=== PATIENT | female | born 1975 | race African-American/Black ===

== ENCOUNTER 2020-09-12 11:10 | Inpatient (IN) | payer SELFPAY ==
[2020-09-12 11:34] VITALS: BMI 32.5
[2020-09-12] MEDS ORDERED: SODIUM CHLORIDE 0.9% 1000 ML INFUS.BAG IV ONE ×2 (12:34→15:34)
[2020-09-12] MEDS ORDERED: ONDANSETRON 4 MG/2 ML VIAL ONE ×2 (12:52→16:15)
[2020-09-12] MEDS ORDERED: ACETAMINOPHEN 1000 MG/100 ML VIAL (NON FORMULARY) IVPB ONE (13:12)
[2020-09-12 13:30] LABS: HEMATOCRIT 35.4 % (32.4-45.2); HEMOGLOBIN 11.3 GM/dL (10.7-15.3); LYMPH % 13.8 % (8-40); MCHC 31.8 g/dl (32.0-36.0); MEAN CELL VOLUME 75.4 fl (80-96); MEAN PLT VOLUME 8.7 fl (7.5-11.1); MONO % 13.6 % (3.8-10.2); NEUT % 71.6 % (42.8-82.8); PLATELET COUNT 531 K/MM3 (134-434); RBC 4.69 M/mm3 (3.60-5.2); RDW 17.8 % (11.6-15.6); WHITE BLOOD COUNT 7.8 K/mm3 (4.0-10.0)
[2020-09-12] MEDS ORDERED: ACETAMINOPHEN INJECTION 100 ML IVPB ONE (13:31)
[2020-09-12 13:39] LABS: INR 1.08 (0.83-1.09); PROTHROMBIN TIME (PATIENT) 13.3 SEC (9.7-13.0)
[2020-09-12 13:52] LABS: POTASSIUM 3.2 mmol/L (3.5-5.1)
[2020-09-12 13:54] LABS: CALCIUM 10.3 mg/dL (8.5-10.1)
[2020-09-12 13:55] LABS: BLOOD UREA NITROGEN 24.7 mg/dL (7-18)
[2020-09-12 13:58] LABS: CREATININE 1.3 mg/dL (0.55-1.3)
[2020-09-12 13:59] LABS: BILIRUBIN,TOTAL 1.6 mg/dL (0.2-1)
[2020-09-12 14:00] LABS: TOT PROT 9.4 g/dl (6.4-8.2)
[2020-09-12] MEDS ORDERED: ONDANSETRON 4 MG/2 ML VIAL IVPUSH ONE ×2 (15:35→16:43)
[2020-09-12] MEDS ORDERED: POTASSIUM CHLORIDE TABS 20 MEQ TABLET.ER (FP) PO ONE (15:35)
[2020-09-12 15:36] LABS: EPI CELLS >36 /uL (0-25.1); HYALINE CASTS 4 /uL (0-3.1); URINE APPEARANCE CLOUDY; URINE BACTERIA 1403 /uL (0-1359); URINE BILIRUBIN NEGATIVE (NEGATIVE); URINE COLOR ORANGE; URINE GLUCOSE (UA) NEGATIVE (NEGATIVE); URINE KETONE TRACE (NEGATIVE); URINE LEUK ESTERASE TRACE (NEGATIVE); URINE NITRITE NEGATIVE (NEGATIVE); URINE PROTEIN 2+ (NEGATIVE); URINE RBC 4856 /uL (0-23.9); URINE UROBILINOGEN 0.2 mg/dL (0.2-1.0); URINE WBC 84 /uL (0-25.8)
[2020-09-12] MEDS ORDERED: POTASSIUM CHLORIDE TABS 10 MEQ TABLET.ER (FP) ONE (16:14)
[2020-09-12] MEDS ORDERED: POTASSIUM CHLORIDE 20 MEQ PREMIX IVPB 100 ML IVPB ONE (16:43)
[2020-09-12] MEDS ORDERED: KETOROLAC TROMETHAMINE 15 MG/ML VIAL IVPUSH ONE (17:28)
[2020-09-12] MEDS ORDERED: KCL 10 MEQ IVPB 20 MEQ/200 ML INFUS.BAG IVPB ONE (17:31)
[2020-09-12] MEDS ORDERED: KETOROLAC TROMETHAMINE 15 MG/ML VIAL ONE (17:32)
[2020-09-12] MEDS ORDERED: morphine CARPU-JECT 4 MG/1 ML DISP.SYRIN IVPUSH ONE (18:46)
[2020-09-12] MEDS ORDERED: morphine SULFATE 4 MG/ML VIAL ONE (18:51)
[2020-09-12] MEDS ORDERED: SODIUM CHLORIDE 1,000 ML IV SCH (19:00)
[2020-09-12] MEDS ORDERED: ACETAMINOPHEN 1000 MG/100 ML VIAL (NON FORMULARY) IVPB PRN (20:12)
[2020-09-13 07:36] LABS: HEMATOCRIT 28.4 % (32.4-45.2); HEMOGLOBIN 9.1 GM/dL (10.7-15.3); MCHC 31.9 g/dl (32.0-36.0); MEAN CELL VOLUME 75.4 fl (80-96); MEAN PLT VOLUME 8.4 fl (7.5-11.1); PLATELET COUNT 400 K/MM3 (134-434); RBC 3.77 M/mm3 (3.60-5.2); RDW 17.8 % (11.6-15.6); WHITE BLOOD COUNT 6.4 K/mm3 (4.0-10.0)
[2020-09-13 07:50] LABS: POTASSIUM 3.5 mmol/L (3.5-5.1)
[2020-09-13 07:55] LABS: ALBUMIN 3.7 g/dl (3.4-5.0); CALCIUM 8.6 mg/dL (8.5-10.1)
[2020-09-13 07:56] LABS: BLOOD UREA NITROGEN 20.3 mg/dL (7-18); MAGNESIUM 2.5 mg/dL (1.8-2.4)
[2020-09-13 07:58] LABS: PHOSPHOROUS 4.1 mg/dL (2.5-4.9)
[2020-09-13 07:59] LABS: BILIRUBIN,TOTAL 0.8 mg/dL (0.2-1)
[2020-09-13 08:25] LABS: TOT PROT 6.7 g/dl (6.4-8.2)
[2020-09-13] MEDS ORDERED: DEXTROSE 5%-0.45% SALINE 1,000 ML IV SCH (08:30)
[2020-09-13] MEDS ORDERED: POTASSIUM CHLORIDE TABS 20 MEQ TABLET.ER (FP) PO ONE (08:30)
[2020-09-13] MEDS ORDERED: amLODIPine BESYLATE 10 MG TABLET (FP) PO SCH (10:00)
[2020-09-13 17:31] VITALS: BP 149/92; PULSE 61; TEMP 98.3
== END 2020-09-13 20:42 | disposition home or self-care (01) | DRG 249 ==
LOC: JER 11:10 → JERBED 18:43 → J4W 09-13 00:29
PROVIDERS: ADMIT Internal Medicine; ATTEND Nurse Practitioner Acute Care
DX: A08.4 Viral intestinal infection, unspecified (principal); I10 Essential (primary) hypertension; E86.0 Dehydration; E87.2 Acidosis; R11.10 Vomiting, unspecified; E87.6 Hypokalemia; D25.9 Leiomyoma of uterus, unspecified; R10.9 Unspecified abdominal pain
CPT/HCPCS: 36415; 71045-TC-FY; 74177-TC; 76705-TC; 76830-TC; 76856-TC; 76937; 80053; 81003; 83605; 83690; 83735; 84100; 85025; 85027; 85610; 86769; 87804; 93005; 93010; 99285-25; C9803; J0131; Q9967; U0003

== ENCOUNTER 2022-09-09 09:34 | Inpatient (IN) | payer BC, OTHER ==
[2022-09-09] MEDS ORDERED: ONDANSETRON *ODT* 4 MG TABLET SL ONE (09:56)
[2022-09-09] MEDS ORDERED: Methylnaltrexone Bromide 12 MG/0.6 ML KIT SQ ONE (09:59)
[2022-09-09] MEDS ORDERED: ONDANSETRON 4 MG/2 ML VIAL IVPUSH ONE (10:42)
[2022-09-09] MEDS ORDERED: ONDANSETRON 4 MG/2 ML VIAL ONE ×2 (10:45→20:54)
[2022-09-09 11:05] LABS: HEMATOCRIT 31.8 % (32.4-45.2); HEMOGLOBIN 10.3 GM/dL (10.7-15.3); MCH 26.8 pg (25.7-33.7); MCHC 32.3 g/dl (32.0-36.0); MEAN PLT VOLUME 8.5 fl (7.5-11.1); PLATELET COUNT 474 10^3/uL (134-434); RBC 3.84 M/mm3 (3.60-5.2); RDW 19.4 % (11.6-15.6); WHITE BLOOD COUNT 14.1 K/mm3 (4.0-10.0)
[2022-09-09 11:13] LABS: PROTHROMBIN TIME (PATIENT) 11.6 SEC (9.7-13.0)
[2022-09-09 11:15] LABS: ACTIVATED PTT 28.5 SECONDS (25.2-36.5)
[2022-09-09 11:29] LABS: CHLORIDE 103 mmol/L (98-107); SODIUM 137 mmol/L (136-145)
[2022-09-09 11:31] LABS: ANION GAP 11 MMOL/L (8-16); BLOOD UREA NITROGEN 13.5 mg/dL (7-18); CALCIUM 9.9 mg/dL (8.5-10.1); CO2 23 mmol/L (21-32); MAGNESIUM 2.1 mg/dL (1.8-2.4)
[2022-09-09 11:32] LABS: GLUCOSE,RANDOM 121 mg/dL (74-106)
[2022-09-09 11:33] LABS: LIPASE 119 U/L (73-393)
[2022-09-09 11:35] LABS: SGOT/AST 30 U/L (15-37); SGPT/ALT 35 U/L (13-61)
[2022-09-09 11:36] LABS: BILIRUBIN,TOTAL 0.8 mg/dL (0.2-1); TOT PROT 7.9 g/dl (6.4-8.2)
[2022-09-09 11:37] LABS: ALK PHOS 59 U/L (45-117)
[2022-09-09] MEDS ORDERED: METOCLOPRAMIDE HCL INJECTION 10 MG/2 ML VIAL IVPB ONE ×2 (11:38→17:56)
[2022-09-09] MEDS ORDERED: METOCLOPRAMIDE HCL INJECTION 10 MG/2 ML VIAL ONE ×2 (11:41→18:15)
[2022-09-09 12:05] LABS: URINE APPEARANCE CLEAR; URINE BILIRUBIN NEGATIVE (NEGATIVE); URINE COLOR YELLOW; URINE GLUCOSE (UA) NEGATIVE (NEGATIVE); URINE KETONE 4+ (NEGATIVE)
[2022-09-09] MEDS ORDERED: LORazepam 2 MG/ML SDV VIAL IVPUSH ONE (12:05)
[2022-09-09 12:06] LABS: URINE LEUK ESTERASE TRACE (NEGATIVE); URINE NITRITE NEGATIVE (NEGATIVE); URINE PROTEIN 2+ (NEGATIVE)
[2022-09-09 13:03] LABS: ANISOCYTOSIS 0; MACROCYTOSIS 0
[2022-09-09] MEDS ORDERED: METOCLOPRAMIDE HCL INJECTION 10 MG/2 ML VIAL IVPUSH PRN (18:56)
[2022-09-09] MEDS ORDERED: METOCLOPRAMIDE HCL INJECTION 10 MG/2 ML VIAL IVPUSH ONE (18:57)
[2022-09-09] MEDS: LACTATED RINGERS SOLUTION 1,000 ML/1,000 ML INFUS.BAG IV SCH (19:41)
[2022-09-09] MEDS: ONDANSETRON 4 MG/2 ML VIAL IVPUSH PRN (22:37)
[2022-09-09] MEDS: KETOROLAC TROMETHAMINE 15 MG/ML VIAL IVPUSH PRN (23:54)
[2022-09-10] MEDS: ONDANSETRON 4 MG/2 ML VIAL IVPUSH PRN (05:48)
[2022-09-10] MEDS: KETOROLAC TROMETHAMINE 15 MG/ML VIAL IVPUSH PRN ×2 (05:48→23:34)
[2022-09-10 09:35] LABS: BASO % 0.3 % (0-2.0); EOS % 0.1 % (0-4.5); HEMATOCRIT 31.5 % (32.4-45.2); HEMOGLOBIN 10.3 GM/dL (10.7-15.3); LYMPH % 4.6 % (8-40); MCH 27.1 pg (25.7-33.7); MCHC 32.8 g/dl (32.0-36.0); MEAN CELL VOLUME 82.6 fl (80-96); MEAN PLT VOLUME 8.7 fl (7.5-11.1); PLATELET COUNT 507 10^3/uL (134-434); RBC 3.81 M/mm3 (3.60-5.2); RDW 19.1 % (11.6-15.6); WHITE BLOOD COUNT 13.2 K/mm3 (4.0-10.0)
[2022-09-10] MEDS: POLYETHYLENE GLYCOL (HEALTHYLAX) 3350 17 GM PACKET PO SCH ×3 (09:48→22:13)
[2022-09-10 09:58] LABS: BLOOD UREA NITROGEN 14.3 mg/dL (7-18); CALCIUM 9.9 mg/dL (8.5-10.1)
[2022-09-10 10:02] LABS: CREATININE 0.8 mg/dL (0.55-1.3)
[2022-09-10 15:45] VITALS: BMI 33.6
[2022-09-10] MEDS ORDERED: POTASSIUM CHLORIDE TABS 20 MEQ TABLET.ER (FP) PO ONE (16:15)
[2022-09-10] MEDS: POTASSIUM CHLORIDE TABS 20 MEQ TABLET.ER (FP) PO ONE ×2 (17:13→17:16)
[2022-09-10] MEDS ORDERED: BISACODYL 10 MG SUPP.RECT PR ONE (17:35)
[2022-09-10] MEDS: METOCLOPRAMIDE HCL INJECTION 10 MG/2 ML VIAL IVPUSH SCH ×2 (17:53→23:35)
[2022-09-10] MEDS: LACTATED RINGERS SOLUTION 1,000 ML/1,000 ML INFUS.BAG IV SCH (22:13)
[2022-09-11] MEDS: LACTATED RINGERS SOLUTION 1,000 ML/1,000 ML INFUS.BAG IV SCH ×2 (01:19→11:30)
[2022-09-11] MEDS: KETOROLAC TROMETHAMINE 15 MG/ML VIAL IVPUSH PRN (04:34)
[2022-09-11] MEDS: ONDANSETRON 4 MG/2 ML VIAL IVPUSH PRN ×2 (04:35→22:32)
[2022-09-11] MEDS: METOCLOPRAMIDE HCL INJECTION 10 MG/2 ML VIAL IVPUSH SCH ×4 (05:41→23:28)
[2022-09-11] MEDS: POLYETHYLENE GLYCOL (HEALTHYLAX) 3350 17 GM PACKET PO SCH (06:42)
[2022-09-11] MEDS ORDERED: BISACODYL 10 MG SUPP.RECT PR PRN (07:37)
[2022-09-11] MEDS ORDERED: MAGNESIUM CITRATE 300 ML BOTTLE PO ONE (08:37)
[2022-09-11 09:27] LABS: BASO % 0.2 % (0-2.0); HEMATOCRIT 30.4 % (32.4-45.2); HEMOGLOBIN 10.1 GM/dL (10.7-15.3); MCH 27.4 pg (25.7-33.7); MCHC 33.2 g/dl (32.0-36.0); MEAN CELL VOLUME 82.4 fl (80-96); MEAN PLT VOLUME 8.6 fl (7.5-11.1); MONO % 6.7 % (3.8-10.2); NEUT % 86.1 % (42.8-82.8); PLATELET COUNT 501 10^3/uL (134-434); RBC 3.69 M/mm3 (3.60-5.2); RDW 19.2 % (11.6-15.6); WHITE BLOOD COUNT 10.8 K/mm3 (4.0-10.0)
[2022-09-11 09:55] LABS: ALBUMIN 3.8 g/dl (3.4-5.0); BLOOD UREA NITROGEN 15.8 mg/dL (7-18); CALCIUM 9.5 mg/dL (8.5-10.1); CREATININE 0.8 mg/dL (0.55-1.3)
[2022-09-11 09:56] LABS: MAGNESIUM 2.1 mg/dL (1.8-2.4); TOT PROT 7.2 g/dl (6.4-8.2)
[2022-09-11 09:57] LABS: BILIRUBIN,TOTAL 0.6 mg/dL (0.2-1)
[2022-09-11] MEDS ORDERED: PEG 3350/NA SULF BICARB CL/KCL 4000 ML SOLN.RECON GT ONE (10:00)
[2022-09-11] MEDS ORDERED: PEG 3350/NA SULF BICARB CL/KCL 4000 ML SOLN.RECON PO ONE (10:00)
[2022-09-11] MEDS: amLODIPine BESYLATE 10 MG TABLET (FP) PO SCH (11:29)
[2022-09-11] MEDS: KCL 10 MEQ IVPB 10 MEQ/100 ML INFUS.BAG IVPB SCH ×2 (11:29→13:30)
[2022-09-11] MEDS ORDERED: KCL 10 MEQ IVPB 10 MEQ/100 ML INFUS.BAG IVPB SCH (13:00)
[2022-09-11] MEDS ORDERED: DOCUSATE SODIUM 100 MG CAPSULE (FP) PO SCH (22:00)
[2022-09-12] MEDS: amLODIPine BESYLATE 10 MG TABLET (FP) PO SCH ×2 (07:05→09:08)
[2022-09-12 09:26] LABS: BASO % 0.2 % (0-2.0); HEMATOCRIT 32.9 % (32.4-45.2); HEMOGLOBIN 10.5 GM/dL (10.7-15.3); LYMPH % 10.2 % (8-40); MCH 26.6 pg (25.7-33.7); MEAN CELL VOLUME 83.2 fl (80-96); MONO % 10.1 % (3.8-10.2); NEUT % 79.5 % (42.8-82.8); PLATELET COUNT 542 10^3/uL (134-434); RBC 3.96 M/mm3 (3.60-5.2); RDW 18.7 % (11.6-15.6); WHITE BLOOD COUNT 8.5 K/mm3 (4.0-10.0)
[2022-09-12 09:52] LABS: ALBUMIN 3.9 g/dl (3.4-5.0); BLOOD UREA NITROGEN 20.4 mg/dL (7-18); CALCIUM 9.7 mg/dL (8.5-10.1); MAGNESIUM 2.3 mg/dL (1.8-2.4)
[2022-09-12 09:55] LABS: CREATININE 0.9 mg/dL (0.55-1.3)
[2022-09-12 09:57] LABS: BILIRUBIN,TOTAL 0.8 mg/dL (0.2-1); TOT PROT 7.2 g/dl (6.4-8.2)
[2022-09-12] MEDS ORDERED: Methylnaltrexone Bromide 12 MG/0.6 ML KIT SQ ONE (10:00)
[2022-09-12] MEDS: POLYETHYLENE GLYCOL (HEALTHYLAX) 3350 17 GM PACKET PO SCH ×2 (11:54→22:29)
[2022-09-12] MEDS: ENOXAPARIN NA (PORCINE) 40 MG/0.4 ML DISP.SYRIN SQ SCH (11:54)
[2022-09-12] MEDS: KCL 10 MEQ IVPB 10 MEQ/100 ML INFUS.BAG IVPB SCH ×3 (13:42→17:06)
[2022-09-12] MEDS: LACTATED RINGERS SOLUTION 1,000 ML/1,000 ML INFUS.BAG IV SCH ×2 (13:49→19:56)
[2022-09-12] MEDS: METOCLOPRAMIDE HCL INJECTION 10 MG/2 ML VIAL IVPB SCH ×2 (17:06→22:29)
[2022-09-12] MEDS ORDERED: hydrALAZINE HCL 20 MG/ML VIAL IVPB ONE (19:39)
[2022-09-12] MEDS: ONDANSETRON 4 MG/2 ML VIAL IVPUSH PRN (23:09)
[2022-09-13] MEDS: TRIMETHOBENZAMIDE HCL 200MG/2ML INJ IM PRN ×3 (03:06→23:39)
[2022-09-13] MEDS: METOCLOPRAMIDE HCL INJECTION 10 MG/2 ML VIAL IVPB SCH ×4 (06:07→22:22)
[2022-09-13 08:52] LABS: BASO % 0.2 % (0-2.0); EOS % 0.2 % (0-4.5); HEMATOCRIT 33.1 % (32.4-45.2); MCH 27.3 pg (25.7-33.7); MCHC 33.1 g/dl (32.0-36.0); MEAN CELL VOLUME 82.3 fl (80-96); MEAN PLT VOLUME 8.5 fl (7.5-11.1); MONO % 9.5 % (3.8-10.2); NEUT % 78.1 % (42.8-82.8); PLATELET COUNT 538 10^3/uL (134-434); RBC 4.02 M/mm3 (3.60-5.2); WHITE BLOOD COUNT 7.9 K/mm3 (4.0-10.0)
[2022-09-13 09:09] LABS: ALBUMIN 3.7 g/dl (3.4-5.0); BLOOD UREA NITROGEN 12.4 mg/dL (7-18); CALCIUM 9.2 mg/dL (8.5-10.1)
[2022-09-13 09:12] LABS: CREATININE 0.7 mg/dL (0.55-1.3)
[2022-09-13 09:14] LABS: BILIRUBIN,TOTAL 0.7 mg/dL (0.2-1); TOT PROT 6.8 g/dl (6.4-8.2)
[2022-09-13 09:55] VITALS: RESP 18
[2022-09-13] MEDS: ENOXAPARIN NA (PORCINE) 40 MG/0.4 ML DISP.SYRIN SQ SCH (09:55)
[2022-09-13] MEDS: amLODIPine BESYLATE 10 MG TABLET (FP) PO SCH (09:56)
[2022-09-13] MEDS: POLYETHYLENE GLYCOL (HEALTHYLAX) 3350 17 GM PACKET PO SCH ×3 (09:56→22:21)
[2022-09-13] MEDS ORDERED: Methylnaltrexone Bromide 12 MG/0.6 ML KIT SQ SCH ×2 (10:00)
[2022-09-13] MEDS ORDERED: POTASSIUM CHLORIDE TABS 20 MEQ TABLET.ER (FP) PO ONE (14:12)
[2022-09-13] MEDS: POTASSIUM CHLORIDE ORAL LIQUID 20 MEQ/15 ML PO SCH ×2 (14:40→22:21)
[2022-09-13] MEDS ORDERED: PROCHLORPERAZINE INJECTION 10 MG/2 ML VIAL IM ONE (16:57)
[2022-09-13] MEDS ORDERED: PROCHLORPERAZINE MALEATE 25 MG SUPP.RECT RC PRN (16:57)
[2022-09-13] MEDS: LACTATED RINGERS SOLUTION 1,000 ML/1,000 ML INFUS.BAG IV SCH (20:19)
[2022-09-14] MEDS: METOCLOPRAMIDE HCL INJECTION 10 MG/2 ML VIAL IVPB SCH (06:19)
[2022-09-14] MEDS: TRIMETHOBENZAMIDE HCL 200MG/2ML INJ IM PRN (08:06)
[2022-09-14] MEDS ORDERED: ONDANSETRON *ODT* 4 MG TABLET SL PRN (09:12)
[2022-09-14] MEDS ORDERED: BISACODYL 5 MG TABLET.DR (FP) PO PRN (09:15)
[2022-09-14] MEDS ORDERED: FAMOTIDINE 20 MG TABLET PO SCH (10:00)
[2022-09-14] MEDS: METOCLOPRAMIDE HCL 10 MG TABLET (FP) PO SCH ×2 (10:13→16:54)
[2022-09-14] MEDS: ENOXAPARIN NA (PORCINE) 40 MG/0.4 ML DISP.SYRIN SQ SCH (10:13)
[2022-09-14] MEDS: amLODIPine BESYLATE 10 MG TABLET (FP) PO SCH (10:13)
[2022-09-14] MEDS ORDERED: SCOPOLAMINE HYDROBROMIDE 1 PATCH PATCH.TD72 TD SCH (12:00)
[2022-09-14] MEDS ORDERED: POTASSIUM CHLORIDE TABS 20 MEQ TABLET.ER (FP) PO ONE (12:26)
[2022-09-14] MEDS ORDERED: POLYETHYLENE GLYCOL (HEALTHYLAX) 3350 17 GM PACKET PO SCH ×2 (14:00→22:00)
[2022-09-14 15:50] VITALS: BP 158/72; PULSE 70; TEMP 98.4
[2022-09-14] MEDS ORDERED: BISACODYL 5 MG TABLET.DR (FP) PO SCH (22:00)
[2022-09-15] MEDS ORDERED: HYDROCHLOROTHIAZIDE 25 MG TABLET (FP) PO SCH (10:00)
== END 2022-09-14 20:47 | disposition home or self-care (01) | DRG 390 ==
LOC: JER 09:34 → JERBED 18:01 → J8W 23:43 → OBSVTOIN 09-12 13:22
PROVIDERS: ADMIT Internal Medicine; ATTEND Nurse Practitioner Acute Care
DX: K56.41 Fecal impaction (principal); F12.90 Cannabis use, unspecified, uncomplicated; I10 Essential (primary) hypertension; E87.6 Hypokalemia; E66.9 Obesity, unspecified; Z68.33 Body mass index [BMI] 33.0-33.9, adult; R11.2 Nausea with vomiting, unspecified
CPT/HCPCS: 0241U-QW; 36415; 71045-TC-FY; 74018-TC-FY; 74177-TC; 80048; 80053; 81003; 82607; 82728; 82746; 82962; 83540; 83550; 83690; 83735; 84443; 84703; 85025; 85610; 85730; 86140; 86850; 86900; 86901; 87086; 93005; 93010; 99285-25; G0378; Q0162; Q9967